=== PATIENT | female | born 1960 | race Caucasian/White ===

== ENCOUNTER 2018-02-03 10:11 | Emergency (ER) | payer OTHER ==
--- NOTE | 2018-02-03 12:53 | UC ---
Throat Pain/Nasal [place] HPI - HPI Summary HPI Summary: 57-year-old female presents with complaints of sore throat. She is 2 days postop [place] States pain is localized to the uvula she believes that it may have been irritated when they removed the breathing tube after her surgery. Denies fever, chills, URI symptoms, dysphagia, or difficulty breathing. - History of Current Complaint Chief Complaint: UCGI Stated Complaint: GAG REFLEX Time Seen by Provider: 02/03/18 12:27 Hx Obtained From: Patient Pain Intensity: 6 - Allergies/Home Medications Allergies/Adverse Reactions: Allergies Allergy/AdvReac Type Severity Reaction Status Date / Time Cephalosporins Allergy Intermediate Hives Verified 02/03/18 11:06 Penicillins Allergy Intermediate HIVES/SOB Verified 02/03/18 11:06 Sulfa (Sulfonamide Allergy Intermediate SHAKE AND Verified 02/03/18 11:06 Antibiotics) TREMBLE Home Medications: Home Medications Ibuprofen TAB* [Motrin TAB* 600 MG] 600 mg PO Q6H PRN 02/03/18 [History Confirmed 02/03/18] Levothyroxine TAB* [Synthroid 125 MCG TAB*] 02/03/18 [History] Losartan TAB* [Cozaar TAB*] 60 mg PO DAILY 02/03/18 [History Confirmed 02/03/18] dilTIAZem HCl [Cardizem 30 MG TAB] 100 mg PO 02/03/18 [History] oxyCODONE SR TAB(*) [Oxycontin 10 mg (*)] 10 mg PO BID 02/03/18 [History Confirmed 02/03/18] PMH/Surg Hx/FS Hx/Imm Hx Endocrine History: Hypothyroidism Cardiovascular History: Hypertension, Atrial Fibrillation - Surgical History Surgical History: Yes Surgery Procedure, Year, and Place: CHOLECYSTECTOMY;. GANGLION CYST - SANDHYA WRIST ;. THYROIDECTOMY;. lap hysterectomy - Family History Known Family History: Positive: Non-Contributory - Social History Occupation: Employed Full-time Lives: With Family Alcohol Use: Daily Substance Use Type: None Smoking Status (MU): Never Smoked Tobacco Review of Systems All Other Systems Reviewed And Are Negative: Yes Constitutional: Negative: Fever, Chills Eyes: Negative: Drainage, Eye Redness ENT: Positive: Sore Throat. Negative: Ear Ache, Nasal Discharge, Sinus Congestion, Sinus Pain/Tenderness Respiratory: Negative: Shortness Of Breath, Cough Cardiovascular: Negative: Palpitations, Chest Pain Gastrointestinal: Negative: Abdominal Pain, Vomiting, Diarrhea, Nausea Is Patient Immunocompromised?: No Physical Exam - Summary Physical Exam Summary: GENERAL APPEARANCE: Well developed, well nourished, alert and cooperative, and appears to be in no acute distress. EYES: Conjunctiva clear. No discharge. Vision is grossly intact. EARS: External auditory canals and tympanic membranes clear, hearing grossly intact. NOSE: No nasal discharge. THROAT: Elongated uvular with mild erythema and no edema. Airway patent. Oral cavity and pharynx normal. No inflammation, swelling, exudate, or lesions. Teeth and gingiva in good general condition. NECK: Neck supple, non-tender without lymphadenopathy. CARDIAC: Normal S1 and S2. No S3, S4 or murmurs. Rhythm is regular. There is no peripheral edema, cyanosis or pallor. Extremities are warm and well perfused. Capillary refill is less than 2 seconds. LUNGS: Clear to auscultation and percussion without rales, rhonchi, wheezing or diminished breath sounds. SKIN: Skin normal color, texture and turgor with no lesions or eruptions. Triage Information Reviewed: Yes Vital Signs: Initial Vital Signs Temp 98.9 F 02/03/18 11:01 Pulse 94 02/03/18 11:01 Resp 18 02/03/18 11:01 BP 126/78 02/03/18 11:01 Pulse Ox 97 02/03/18 11:01 Vital Signs Reviewed: Yes Throat Pain/Nasal Course/Dx - Course Course Of Treatment: 57-year-old female presents with complaints of sore throat. She is 2 days postop [place] States pain is localized to the uvula she believes that it may have been irritated when they removed the breathing tube after her surgery. Denies fever, chills, URI symptoms, dysphagia, or difficulty breathing. Afebrile. Vital signs stable. Exam unremarkable except for a mildly erythematous uvula without edema or restriction of her airway. Recommending symptomatic treatment using [id number] Chloraseptic spray or Cepacol lozenges. Discussed possibility of steroids to help with inflammation however with the risk of delayed healing and infection associated with this I have deferred this treatment to her surgeon. She is to contact her surgeon to discuss other treatments. Warning symptoms were reviewed with the patient. Verbalizes understanding and agrees with plan of care. - Differential Dx/Diagnosis Provider Diagnosis: Uvulitis Discharge - Sign-Out/Discharge Documenting (check all that apply): Patient Departure All imaging exams completed and their final reports reviewed: No Studies - Discharge Plan Condition: Stable Disposition: HOME Patient Education Materials: Uvulitis (ED) Referrals: Taras Rodríguez MD [Primary Care Provider] - Additional Instructions: Your uvula is slightly red and irritated, most likely from the breathing tube used during your surgery. I would recommend using over the counter Chloraseptic or Cepacol lozenges which have a numbing medication to help provide some temporary pain relief. Continue taking your pain medication as directed. Make sure you contact your surgeon to let her know what is going on and inquire as to whether she would recommend any other treatment. Seek immediate medical attention in the emergency room if you develop fever greater than 100.5 F, have increased pain, you are unable to swallow, have drooling, difficulty breathing, or any worsening of symptoms. - Billing Disposition and Condition Condition: STABLE Disposition: Home
[2018-02-03 13:03] VITALS: BP 110/64
== END 2018-02-03 13:03 | disposition home or self-care (01) ==
LOC: UCEAST 10:11
DX: K12.2 Cellulitis and abscess of mouth (principal); I10 Essential (primary) hypertension; Z88.0 Allergy status to penicillin; Z88.1 Allergy status to other antibiotic agents; Z88.2 Allergy status to sulfonamides
CPT/HCPCS: 99212; G0463

== ENCOUNTER 2018-03-08 12:17 | Day surgery (SDC) | payer OTHER ==
[~2018-03-08 12:17] MED LIST: Buffered Lidocaine 1% SYRIN* 1 ML/SYRINGE INTRADERM ONE; Lactated Ringers 1000 ML Bag* 1,000 ML IV SCH; Sodium Citrate/Citric Acid* 15 ML UDC PO ONE
[2018-03-08] MEDS ORDERED: Buffered Lidocaine 1% SYRIN* 1 ML/SYRINGE INTRADERM ONE (12:42)
[2018-03-08] MEDS ORDERED: Clindamycin 900 MG/D5W BAG(*) 900 MG/50 ML BAG IVPB ONE (12:42)
[2018-03-08] MEDS ORDERED: Sodium Citrate/Citric Acid* 15 ML UDC ONE (12:42)
[2018-03-08] MEDS ORDERED: Bupivacaine 0.5%* 50 ML VIAL ONE (13:01)
[2018-03-08] MEDS ORDERED: Lidocaine 2% PF* 10 ML AMP ONE (13:01)
[2018-03-08] MEDS ORDERED: Propofol* 10 MG/ML 20 ML BTL ONE (13:07)
[2018-03-08] MEDS ORDERED: Lidocaine 2% PF * 5 ML VIAL ONE (13:07)
[2018-03-08] MEDS ORDERED: fentaNYL* 50 MCG/ML 2 ML VIAL (100 MCG VIAL) ONE (13:07)
[2018-03-08] MEDS ORDERED: Midazolam* 1 MG/ML 2 ML VIAL (2 MG) ONE (13:07)
[2018-03-08] MEDS ORDERED: Naloxone* 0.4 MG/ML 1 ML VIAL IV PRN (14:08)
[2018-03-08] MEDS ORDERED: HYDROcodone/ACETAMIN 5-325 MG* 1 TAB ONE (14:23)
[2018-03-08 14:58] VITALS: BP 126/79
--- NOTE | 2018-03-08 20:26 | OP ---
DATE OF OPERATION: 03/08/18 - [facility] DATE OF : 56 SURGEON: Kemar Carroll M.D. SOLAR DEVELOPMENT ENGINEER: STEVEN Pacheco. 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 POST-OP DIAGNOSES: Left second and third webspace, plantar neuroma and synovitis. OPERATIVE PROCEDURE: Excision of neuroma, left forefoot, biopsy of local tissues and cultures. DESCRIPTION OF PROCEDURE: The patient was taken to the operating room where a longitudinal incision was made between the second and third metatarsals dorsally. Extensor tendons were reflected away from the midline incision, which was carried down through the transverse metatarsal ligament. There was a significant amount of fluid, which appeared to be sort of clear and serous. There was some edema in the interosseous muscles as well. Some of these were removed with a 15 blade. About a cubic centimeter of this tissue was sent to Pathology and local cultures were sent as well. There was no evidence of any purulence. The nerve itself was inflamed, which transected the distal branches , retracted this dorsally and distally, and then transected the base of the nerve well up between the metatarsal shafts. We then irrigated, closing with Vicryl and nylon sutures for the skin and a compression dressing was applied. [id number]/[facility] #: [id number] [facility] HOSPITALFidel
== END 2018-03-08 15:03 | disposition home or self-care (01) ==
LOC: OR 12:17
PROVIDERS: ATTEND Orthopaedic Surgery
DX: G57.82 Other specified mononeuropathies of left lower limb (principal); M79.672 Pain in left foot; E03.9 Hypothyroidism, unspecified; Z88.0 Allergy status to penicillin; G47.33 Obstructive sleep apnea (adult) (pediatric); I10 Essential (primary) hypertension
CPT/HCPCS: 87070; 87073; 87205; 88302; 88304; A9270-GY; J2001; J2250; J2704; J3010